=== PATIENT | male | born 1970 | race Caucasian/White ===

== ENCOUNTER 2019-12-22 12:44 | Outpatient (CLI) | payer OTHER ==
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
== END 2019-12-22 12:45 | disposition home or self-care (01) ==
LOC: SCSMRI 12:44
PROVIDERS: ATTEND Family Medicine
DX: S16.1XXD Strain of muscle, fascia and tendon at neck level, subsequent encounter (principal); R20.2 Paresthesia of skin; M48.02 Spinal stenosis, cervical region; Z98.890 Other specified postprocedural states
CPT/HCPCS: 72141

== ENCOUNTER 2020-10-01 10:06 | Outpatient (CLI) | payer OTHER | END 2020-10-01 10:07 | disposition home or self-care (01) | LOC: TBSIIMAG 10:06 | PROVIDERS: ATTEND Neurological Surgery | DX: M47.26 Other spondylosis with radiculopathy, lumbar region (principal) | CPT/HCPCS: 72100 ==